=== PATIENT | female | born 1990 | race Two or more races ===

== ENCOUNTER 2025-01-14 06:18 | Inpatient (IN) | payer MEDICAID ==
[2025-01-12 11:01] LABS: INR 0.98 (0.9-1.15); Partial Thromboplastin Time 28.2 SEC (24.5-34.5); Prothrombin Time 10.4 sec (9.3-11.8)
[2025-01-12 11:14] LABS: Hematocrit 40.7 % (36.0-46.0); Hemoglobin 13.7 g/dL (12.2-16.2); Mean Corpuscular Hemoglobin 27.8 pg (28.0-32.0); Mean Corpuscular Volume 82.5 fL (80.0-100.0); Nucleated Red Blood Cells % 0.1 %
[2025-01-12 11:34] LABS: Alanine Aminotransferase 18 U/L (7-40); Albumin 4.3 g/dL (3.2-4.8); Alkaline Phosphatase 105 U/L (46-116); Anion Gap 9 (5-15); BUN/Creatinine Ratio 7.8 (10.0-20.0); Calcium 9.0 mg/dL (8.7-10.4); Carbon Dioxide 27 mmol/L (20-31); Chloride 105 mmol/L (98-107); Glucose 87 mg/dL (74-106); Potassium 4.1 mmol/L (3.5-5.1); Sodium 141 mmol/L (136-145); Total Protein 7.4 g/dL (5.7-8.2)
[2025-01-12 11:35] LABS: Bilirubin, Total 0.4 mg/dL (0.2-1.0)
[2025-01-12 11:39] LABS: Blood Urea Nitrogen 6 mg/dL (9-23)
[2025-01-12 11:41] LABS: Urine Protein, UAD TRACE (Negative)
[2025-01-14] VITALS (7 sets, daily range): BP systolic 107–120; BP diastolic 64–76; PULSE 55–69; RESP 12–20; TEMP 97.5–97.9; O2SAT 95–99
[~2025-01-14] VITALS: Ht 177.8 cm; Wt 156.5 kg
[~2025-01-14 06:18] MED LIST: CHOL20007 PO
[2025-01-14] MEDS: SUCCINYLCHOLINE CHLORIDE 20 MG/ML 10ML VIAL IV ONE (06:43)
[2025-01-14] MEDS ORDERED: PROPOFOL 10 MG/ML 20 ML IV ONE (06:46)
[2025-01-14] MEDS ORDERED: HYDROmorphone HCL 2 MG/ML VL/or syr ONE (06:46)
[2025-01-14] MEDS ORDERED: fentaNYL CITRATE 100 MCG/2 ML VL ONE (06:46)
[2025-01-14] MEDS ORDERED: ONDANSETRON HCL 4 MG/2 ML VIAL ONE (06:51)
[2025-01-14] MEDS ORDERED: PHENYLEPHRINE HCL 10 MG/ML VL ONE (06:51)
[2025-01-14] MEDS: LIDOCAINE W/ EPINEPHRINE 1% 20ML VIAL ONE (07:13)
[2025-01-14] MEDS: BUPIVACAINE 0.5% P/F INJ 10 ML VIAL ONE (07:13)
[2025-01-14] MEDS: ceFAZolin 2 GM/D5W50ml 50 ML IV ONE (07:24)
[2025-01-14] MEDS ORDERED: ROCURONIUM 10MG/ML 10ML VIAL IV ONE (07:35)
[2025-01-14] MEDS: POVIDONE IODINE 10 % TOPICAL OINT 30GM TOP ONE (08:11)
[2025-01-14] MEDS ORDERED: METOCLOPRAMIDE HCL 5MG/ml INJ 2ml VIAL IV PRN (08:45)
[2025-01-14] MEDS ORDERED: ACETAMINOPHEN IV 1000 MG/100ML (10MG/ML) IV PRN (08:45)
[2025-01-14] MEDS: ONDANSETRON HCL 4 MG/2 ML VIAL IV PRN ×2 (08:50→19:08)
[2025-01-14] MEDS: HYDROmorphone HCL 2 MG/ML VL/or syr ONE (08:59)
[2025-01-14] MEDS: HYDROmorphone HCL 2 MG/ML VL/or syr IV PRN ×2 (08:59→19:09)
[2025-01-14] MEDS: ONDANSETRON HCL 4 MG/2 ML VIAL ONE (09:00)
[2025-01-14] MEDS ORDERED: NITROGLYCERIN 0.4 MG SL TAB SL PRN (09:30)
[2025-01-14] MEDS ORDERED: MORPHINE SULFATE INJ 2 MG/ml SYRG IV PRN (09:30)
--- NOTE | 2025-01-14 10:08 | DVHOP ---
DATE OF SURGERY: 01/14/2025 PREOPERATIVE DIAGNOSES: * Cholelithiasis. * Chronic cholecystitis. POSTOPERATIVE DIAGNOSES: * Cholelithiasis. * Chronic cholecystitis. SURGEON: Damir Garza MD ANESTHESIA: General endotracheal, Dr. Lentz. PROCEDURES: * Laparoscopy. * Laparoscopic cholecystectomy. DESCRIPTION OF PROCEDURE: Under general endotracheal anesthesia with the patient's skin prepped and draped, a supraumbilical incision was made and a Veress needle inserted by the hanging drop technique in order to establish pneumoperitoneum to 15 mmHg pressure by insufflation with carbon dioxide. With the abdomen fully distended, the needle was removed and replaced with a 5 mm trocar port through which a 0-degree viewing laparoscope was inserted and under direct vision, an additional 5 and 10 mm ports inserted through the right anterior axillary line in the subxiphoid midline skin respectively. Instrumentation was introduced. Laparoscopy was accomplished revealing no obvious unexpected pathology on the serosal surfaces visualized, although the patient's morbid obesity hampered the thorough examination. The gallbladder was surrounded by omental caking and it was placed on tension. The omentum was stripped from the gallbladder. The gallbladder was traced to an infundibular section where there were multiple huge stones impacted in the gallbladder. The cystic duct was identified and circumferentially dissected and traced into the hepatic and cystic triangle as to minimize the potential for inadvertent injury to the common bile duct. The cystic duct was divided between metallic clips close to the gallbladder, again attempting to avoid any inadvertent injury to the common bile duct. The cystic artery was similarly circumferentially dissected and skeletonized and then divided close to the gallbladder between metallic clips. Subsequently, the gallbladder was resected from its liver bed. The gallbladder was almost entirely intrahepatic, which made the dissection of the gallbladder from the liver bed quite tedious and resulted in some denuding of the liver bed. The gallbladder was then removed from the peritoneal cavity. Several spilled stones were removed to the best of my ability, although the patient's obesity and enlarged liver made it difficult to see into the intrahepatic sulcus. A 10-mm Chilo-Rueda drain was inserted underneath the right lobe of the liver and exteriorized through the right flank 5 mm port site secured with a 2-0 nylon suture. Subsequently, hemostasis was meticulously inspected and found to be complete. There was no evidence of bleeding from either the port sites or from the liver bed at the termination of the procedure. The patient's abdomen was desufflated after removal of the instrumentation. The fascial defect was closed using #0 Vicryl. Metallic screws were used for approximation of skin edges. The patient remained stable throughout the procedure and left the operating room following an accurate needle and sponge count. MD SHELIA Holloway/DYLLAN TID: [id number] RECEIPT: [id number]
--- NOTE | 2025-01-14 10:35 | DVHHP2 ---
Review of Systems Allergies: Coded Allergies: NO KNOWN ALLERGIES (Unverified , 01/12/25) Medications Current Medications Medications Dose Ordered Sig/Ramiro Route Start Time Stop Time Status Last Admin Dose Admin Potassium Chloride/Dextrose/ Sod Cl 1,000 ml @ 120 mls/hr Q8H20M IV 01/14/25 08:30 Cefazolin Sodium/ Dextrose 50 ml @ 50 mls/hr Q8HR IV 01/14/25 14:00 Hydromorphone HCl 1 mg Q4HPRN PRN IV 01/14/25 08:30 Ondansetron HCl 4 mg Q4HPRN PRN IV 01/14/25 08:30 Pantoprazole Sodium 40 mg DAILY IV 01/14/25 10:00 Nitroglycerin 0.4 mg Q5MINP PRN SL 01/14/25 09:30 UNV Morphine Sulfate 2 mg Q30M PRN IV 01/14/25 09:30 UNV Exam Vital Signs Vital Signs Date Time Temp Pulse Resp B/P (MAP) Pulse Ox O2 Delivery O2 Flow Rate FiO2 01/14/25 10:05 60 16 123/61 (81) 99 01/14/25 09:00 Nasal Cannula 2.0 95 01/14/25 08:20 97.3 97.3 Labs/Xrays Labs Test 01/12/25 10:01 Range/Units White Blood Count 5.7 4.4-10.8 10^3/uL Red Blood Count 4.93 4.0-5.20 10^6/uL Hemoglobin 13.7 12.2-16.2 g/dL Hematocrit 40.7 36.0-46.0 % Mean Corpuscular Volume 82.5 80.0-100.0 fL Mean Corpuscular Hemoglobin 27.8 L 28.0-32.0 pg Mean Corpuscular Hemoglobin Concent 33.7 32.0-36.0 g/dL Red Cell Distribution Width 15.5 H 11.8-14.3 % Platelet Count 302 140-450 10^3/uL Mean Platelet Volume 9.5 6.9-10.8 fL Neutrophils (%) (Auto) 44.2 37.0-80.0 % Lymphocytes (%) (Auto) 42.7 10.0-50.0 % Monocytes (%) (Auto) 10.7 0.0-12.0 % Eosinophils (%) (Auto) 1.9 0.0-7.0 % Basophils (%) (Auto) 0.5 0.0-2.0 % Neutrophils # (Auto) 2.5 1.6-8.6 10 ^3/uL Lymphocytes # (Auto) 2.4 0.4-5.4 10 ^3/uL Monocytes # (Auto) 0.6 0-1.3 10 ^3/uL Eosinophils # (Auto) 0.1 0-0.8 10 ^3/uL Basophils # (Auto) 0 0-0.2 10 ^3/uL Nucleated Red Blood Cells 0.1 % Prothrombin Time 10.4 9.3-11.8 sec Prothrombin Time INR 0.98 0.9-1.15 Activated Partial Thromboplast Time 28.2 24.5-34.5 SEC Urine Color Yellow Yellow Urine Clarity Turbid H Clear Urine pH 8.0 5.0-9.0 Urine Specific [place] 1.027 1.001-1.035 Urine Protein Trace H Negative Urine Ketones Negative Negative Urine Blood Negative Negative /uL Urine Nitrite Negative Negative Urine Bilirubin Negative Negative Urine Urobilinogen Normal Negative mg/dL Urine Leukocyte Esterase Negative Negative /uL Urine RBC 4 0 - 4 /hpf Urine Microscopic WBC 4 0-5 /HPF Urine Squamous Epithelial Cells Mod <5 /hpf Urine Bacteria None seen None Seen /hpf Urine Mucus Few None Seen Urine Glucose Normal Normal mg/dL Urine Test Negative Negative Sodium Level 141 136-145 mmol/L Potassium Level 4.1 3.5-5.1 mmol/L Chloride Level 105 98-107 mmol/L Carbon Dioxide Level 27 20-31 mmol/L Anion Gap 9 5-15 Blood Urea Nitrogen 6 L 9-23 mg/dL Creatinine 0.77 0.550-1.02 mg/dL Glomerular Filtration Rate Calc 104 >90 mL/min BUN/Creatinine Ratio 7.8 L 10.0-20.0 Serum Glucose 87 74-106 mg/dL Calcium Level 9.0 8.7-10.4 mg/dL Total Bilirubin 0.4 0.2-1.0 mg/dL Aspartate Amino Transferase (AST) 15 13-40 U/L Alanine Aminotransferase (ALT) 18 7-40 U/L Alkaline Phosphatase 105 46-116 U/L Total Protein 7.4 5.7-8.2 g/dL Albumin 4.3 3.2-4.8 g/dL SEPSIS Sepsis Screen Physician Orders To Pacu For Recovery (01/14/25 08:24) Page Hospitalist For Admission (01/14/25 08:24) Oxygen Via Cool Mist Mask (01/14/25 08:24) Incentive Spirometry Q 1hr (01/14/25 08:24) Franky To Bulb Suction (01/14/25 08:24) Abdominal Binder (01/14/25 08:24) Sequential Compression Device (01/14/25 08:24) Clear Liq Diet (01/14/25 Breakfast) Bilirubin, Total (01/15/25 04:00) D5w/Sod Chl 0.45%/Kcl 20meq (01/14/25 08:30) Cefazolin 2 Gm/[id number] (Ancef) (01/14/25 14:00) Hydromorphone Injection (Dilaudid Inject (01/14/25 08:30) Ondansetron Hcl (Zofran) (01/14/25 08:30) Pantoprazole (Protonix) (01/14/25 10:00) Washroom Attendant (01/14/25 08:35) Notify Anesth. For Changes: (01/14/25 08:35) Discharge To Room Per Criteria (01/14/25 08:35) Admit (01/14/25 09:30) Oxygen By Nasal Cannula (01/14/25 09:30) Nitroglycerin Sublingual (Ntrostat Subli (01/14/25 09:30) Morphine Sulfate Injection (01/14/25 09:30) Stat Ekg For Chest Pain (01/14/25 09:30) Notify Md Of Changes From Base (01/14/25 09:30) Emergency Dysrhythmia Protocol (01/14/25 09:30) Vital Signs Date Time Temp Pulse Resp B/P (MAP) Pulse Ox O2 Delivery O2 Flow Rate FiO2 01/14/25 10:05 60 16 123/61 (81) 99 01/14/25 09:35 57 12 120/62 (81) 99 01/14/25 09:20 59 15 115/66 (82) 99 01/14/25 09:05 55 14 116/67 (83) 100 01/14/25 09:00 Nasal Cannula 2.0 95 01/14/25 09:00 55 12 95 Nasal Cannula 2.0 01/14/25 08:59 56 18 125/70 01/14/25 08:50 59 20 120/67 (84) 96 01/14/25 08:35 56 18 124/70 (88) 96 01/14/25 08:30 60 18 118/58 (78) 95 01/14/25 08:25 66 20 121/71 (88) 95 01/14/25 08:20 69 20 96 Room Air 0 01/14/25 08:20 Room Air 0 96 01/14/25 08:20 97.3 69 20 124/68 (86) 96 97.3 01/14/25 06:25 97.5 60 20 118/65 (82) 96 97.5 Medications Medications Dose Ordered Sig/Ramiro Route Start Time Stop Time Status Last Admin Dose Admin Cefazolin Sodium/ Dextrose 50 ml @ ud STK-MED ONCE IV 01/14/25 06:37 01/14/25 06:33 DC 01/14/25 07:24 Hydromorphone HCl 0.5 mg Q10M PRN IV 01/14/25 08:45 01/14/25 09:26 DC 01/14/25 08:59 0.5 MG Ondansetron HCl 4 mg ONCE PRN IV 01/14/25 08:45 01/14/25 08:53 DC 01/14/25 08:50 4 MG Povidone Iodine 1 applic STK-MED ONCE TOP 01/14/25 08:11 01/14/25 08:07 DC 01/14/25 08:15 1 APPLIC Assessment/Plan Assessment/Plan SEE DICTATED NOTE Plan discussed with: Patient My Orders Orders - IMER IWLHELM MD Procedure Category Date Status Time Admit ADMIT 01/14/25 Transmitted 09:30 Oxygen By Nasal RT 01/14/25 Transmitted Cannula 09:30 Nitroglycerin PHA 01/14/25 Logged Sublingual (Ntrostat 09:30 Morphine Sulfate PHA 01/14/25 Logged Injection 09:30 Stat Ekg For Chest SURY 01/14/25 In Process Pain 09:30 Notify Of Changes SURY 01/14/25 In Process From Base 09:30 Emergency Dysrhythmia SURY 01/14/25 In Process Protocol 09:30 Date of Service: Jan 14, 2025 Billing Provider: IMER WILHELM MD Common Visit Codes: [id number] INP/OBS CARE (HIGH) IMER WILHELM MD Jan 14, 2025 10:35
--- NOTE | 2025-01-14 10:46 | DVHHP ---
ADMIT DATE: 01/14/2025 HISTORY OF PRESENT ILLNESS: The patient is a 34-year-old lady who is admitted after she underwent surgery for laparoscopic cholecystectomy for cholelithiasis and chronic cholecystitis. The patient at this time denies any significant pain. No chest pain, no shortness of breath, no nausea or vomiting. REVIEW OF SYSTEMS: Review of rest of systems is otherwise currently negative. PAST MEDICAL HISTORY: Significant for PCOS and obesity. MEDICATIONS: She takes vitamin D. ALLERGIES: No known drug allergies. SOCIAL HISTORY: Denies smoking or alcohol. FAMILY HISTORY: Negative. PHYSICAL EXAMINATION: GENERAL: The patient is awake, alert. VITAL SINGS: Temperature of 97.3, pulse 59 per minute, blood pressure 115/66. SHEENT: Unremarkable. There is no pedal edema. LUNGS: Equal bilaterally. No added sounds. CARDIOVASCULAR SYSTEM: S1 and S2 are regular without murmurs. ABDOMEN: Bowel sounds are hypoactive. There is a CISCO drain in place. NEUROLOGIC: Nonfocal. MUSCULOSKELETAL: Normal. ASSESSMENT AND PLAN: * Morbid obesity. * Status post laparoscopic cholecystectomy for cholelithiasis and chronic cholecystitis. The patient will be placed on IV fluids and pain medications. MD SANJUANITA Palumbo/PIEDAD TID: [id number] RECEIPT: [id number]
[2025-01-14] MEDS: PANTOPRAZOLE 40 MG/10 ML VIAL INJ IV SCH (10:55)
[2025-01-14] MEDS: D5W/SOD CHL 0.45%/KCL 20MEQ 1,000 ML IV SCH (11:14)
[2025-01-14] MEDS: ceFAZolin 2 GM/D5W50ml 50 ML IV SCH (15:21)
[2025-01-15] VITALS (8 sets, daily range): BP systolic 104–121; BP diastolic 57–79; PULSE 55–65; RESP 15–19; TEMP 96.4–98.2; O2SAT 95–100
[2025-01-15] MEDS: HYDROcodone-ACET 5/325MG TAB PO PRN (02:55)
[2025-01-15 06:35] LABS: Albumin 3.8 g/dL (3.2-4.8); Anion Gap 9 (5-15); Bilirubin, Total 0.6 mg/dL (0.2-1.0); Carbon Dioxide 26 mmol/L (20-31); Chloride 105 mmol/L (98-107); Potassium 3.9 mmol/L (3.5-5.1); Sodium 140 mmol/L (136-145); Total Protein 6.6 g/dL (5.7-8.2)
[2025-01-15 06:36] LABS: Alanine Aminotransferase 114 U/L (7-40); Alkaline Phosphatase 132 U/L (46-116); BUN/Creatinine Ratio 6.6 (10.0-20.0); Blood Urea Nitrogen < 5 mg/dL (9-23); Calcium 8.4 mg/dL (8.7-10.4); Glucose 131 mg/dL (74-106)
[2025-01-15 06:48] LABS: Hematocrit 35.7 % (36.0-46.0); Hemoglobin 12.0 g/dL (12.2-16.2); Mean Corpuscular Hemoglobin 27.7 pg (28.0-32.0); Mean Corpuscular Volume 82.3 fL (80.0-100.0); Nucleated Red Blood Cells % 0.0 %
[2025-01-15] MEDS: ceFAZolin 2 GM/D5W50ml 50 ML IV SCH (09:51)
--- NOTE | 2025-01-15 10:05 | DVHPN2 ---
Progress Note Date Seen: Jan 15, 2025 Medical Necessity Reason Pt with a Central, PICC or Fol: No Objective vital signs Vital Sign Date Time Temp Pulse Resp B/P (MAP) Pulse Ox O2 Delivery O2 Flow Rate FiO2 01/15/25 09:00 97.4 55 17 110/71 (84) 100 97.4 01/14/25 20:00 Room Air* 0 21 Total Intake and Output 01/14/25 01/14/25 01/15/25 15:00 23:00 07:00 Intake Total 50 ml 350 ml 250 ml Output Total 20 ml Balance 30 ml 350 ml 250 ml medications Current Medications Medications Dose Ordered Sig/Ramiro Route Start Time Stop Time Status Last Admin Dose Admin Potassium Chloride/Dextrose/ Sod Cl 1,000 ml @ 120 mls/hr Q8H20M IV 01/14/25 08:30 01/15/25 09:55 120 MLS/HR Hydromorphone HCl 1 mg Q4HPRN PRN IV 01/14/25 08:30 01/14/25 19:09 1 MG Ondansetron HCl 4 mg Q4HPRN PRN IV 01/14/25 08:30 01/14/25 19:08 4 MG Pantoprazole Sodium 40 mg DAILY IV 01/14/25 10:00 01/15/25 09:50 40 MG Nitroglycerin 0.4 mg Q5MINP PRN SL 01/14/25 09:30 Morphine Sulfate 2 mg Q30M PRN IV 01/14/25 09:30 Acetaminophen/ Hydrocodone Bitart 1 tab Q6HPRN PRN PO 01/14/25 10:45 01/15/25 09:51 1 TAB Cefazolin Sodium/ Dextrose 50 ml @ 50 mls/hr Q8H IV 01/15/25 08:00 01/15/25 09:51 50 MLS/HR laboratory and microbiology Laboratory Tests 01/15/25 05:38 Test 01/15/25 05:38 Range/Units Serum Glucose 131 H 74-106 mg/dL Problem List/Assessment/Plan Problem List/Assessment/Plan 01/15/25 FEELS OK, WOUND DRESSINGS DRY, DRAINAGE NON BILIOUS, ABDOMEN APPROPRIATELY TENDER, LABS SHOW ELEV.LFT'S NL BILIRUBIN, WILL ADVANCE PO TO REGULAR DIET AND SHE IS CLEARED TO BE DISCHARGED FROM A SURGICAL POINT OF VIEW. Plan discussed with: Patient MARY BERRIOS MD Jan 15, 2025 10:05
[2025-01-15] MEDS: D5W/SOD CHL 0.45%/KCL 20MEQ 1,000 ML IV SCH (10:30)
--- NOTE | 2025-01-15 10:32 | DVHPN2 ---
Progress Note Date Seen: Jan 15, 2025 Medical Necessity Reason Pt with a Central, PICC or Fol: No Subjective Patient reports: No new complaints Review of Systems: HEENT:Normal, CVS:Normal, RESPIRATORY:Normal, GI:Normal, :Normal, MSK:Normal, NEURO:Normal Objective vital signs Vital Sign Date Time Temp Pulse Resp B/P (MAP) Pulse Ox O2 Delivery O2 Flow Rate FiO2 01/15/25 09:00 97.4 55 17 110/71 (84) 100 97.4 01/14/25 20:00 Room Air* 0 21 Total Intake and Output 01/14/25 01/14/25 01/15/25 15:00 23:00 07:00 Intake Total 50 ml 350 ml 250 ml Output Total 20 ml Balance 30 ml 350 ml 250 ml medications Current Medications Medications Dose Ordered Sig/Ramiro Route Start Time Stop Time Status Last Admin Dose Admin Potassium Chloride/Dextrose/ Sod Cl 1,000 ml @ 120 mls/hr Q8H20M IV 01/14/25 08:30 01/15/25 09:55 120 MLS/HR Hydromorphone HCl 1 mg Q4HPRN PRN IV 01/14/25 08:30 01/14/25 19:09 1 MG Ondansetron HCl 4 mg Q4HPRN PRN IV 01/14/25 08:30 01/14/25 19:08 4 MG Pantoprazole Sodium 40 mg DAILY IV 01/14/25 10:00 01/15/25 09:50 40 MG Nitroglycerin 0.4 mg Q5MINP PRN SL 01/14/25 09:30 Morphine Sulfate 2 mg Q30M PRN IV 01/14/25 09:30 Acetaminophen/ Hydrocodone Bitart 1 tab Q6HPRN PRN PO 01/14/25 10:45 01/15/25 09:51 1 TAB Cefazolin Sodium/ Dextrose 50 ml @ 50 mls/hr Q8H IV 01/15/25 08:00 01/15/25 09:51 50 MLS/HR Examination: GENERAL:Normal, HEENT:Normal, NECK:Normal, LUNGS:Normal, CVS:Normal, ABDOMEN:Normal, ABDOMEN:Abnormal (drain+), MSK:Normal, SKIN:Normal, NEURO:Normal, :Normal laboratory and microbiology Laboratory Tests 01/15/25 05:38 Test 01/15/25 05:38 Range/Units Serum Glucose 131 H 74-106 mg/dL Problem List/Assessment/Plan Problem List/Assessment/Plan * Morbid obesity. * transaminitis: repeat cmp in am * Status post laparoscopic cholecystectomy for cholelithiasis and chronic cholecystitis. The patient will be placed on IV fluids and pain medications, advance diet Plan discussed with: Patient My Orders My Orders Orders - IMER WILHELM MD Procedure Category Date Status Time Hydrocodone-Acet PHA 01/14/25 In Process 5/325mg Tab ([place] 10:45 D5 1/2 Ns Potassium PHA 01/15/25 Verified 20meq 10:30 Complete Blood Count LAB 01/16/25 Verified 06:00 Comprehensive LAB 01/16/25 Verified Metabolic Panel 06:00 Date of Service: Jan 15, 2025 Billing Provider: IMER WILHELM MD Common Visit Codes: [id number] INP/OBS CARE(HIGH) IMER WILHELM MD Jan 15, 2025 10:32
[2025-01-16 01:17] VITALS: BP 119/70; PULSE 60; RESP 18; TEMP 98; O2SAT 95
[2025-01-16 05:00] VITALS: BP 117/66; PULSE 63; RESP 18; TEMP 98.5; O2SAT 93
[2025-01-16 06:34] LABS: Hematocrit 35.9 % (36.0-46.0); Hemoglobin 12.0 g/dL (12.2-16.2); Mean Corpuscular Hemoglobin 27.5 pg (28.0-32.0); Mean Corpuscular Volume 82.5 fL (80.0-100.0); Nucleated Red Blood Cells % 0.0 %
[2025-01-16 06:59] LABS: Albumin 3.7 g/dL (3.2-4.8); Anion Gap 10 (5-15); BUN/Creatinine Ratio 8.8 (10.0-20.0); Bilirubin, Total 0.5 mg/dL (0.2-1.0); Carbon Dioxide 27 mmol/L (20-31); Chloride 104 mmol/L (98-107); Glucose 89 mg/dL (74-106); Potassium 3.7 mmol/L (3.5-5.1); Sodium 141 mmol/L (136-145); Total Protein 6.4 g/dL (5.7-8.2)
[2025-01-16 07:02] LABS: Blood Urea Nitrogen 7 mg/dL (9-23)
[2025-01-16 07:03] LABS: Alanine Aminotransferase 155 U/L (7-40); Alkaline Phosphatase 137 U/L (46-116); Calcium 8.4 mg/dL (8.7-10.4)
[2025-01-16 08:00] VITALS: PULSE 68; RESP 18
[2025-01-16 09:00] VITALS: BP 105/67; PULSE 61; RESP 16; TEMP 98.1; O2SAT 94
[2025-01-16] MEDS ORDERED: HYDR-4902 PO (11:29)
[2025-01-16] MEDS ORDERED: SENN-62 PO (11:29)
[2025-01-16] MEDS ORDERED: AMOX500T86 PO (11:29)
--- NOTE | 2025-01-16 11:34 | DVHDS2 ---
Discharge Summary Date of Admission Jan 14, 2025 at 09:30 Date of Discharge: Jan 16, 2025 Admitting Diagnosis Cholecystitis Labs/Diagnostic Data: Laboratory Results Test 01/16/25 05:03 01/12/25 10:01 White Blood Count 6.6 10^3/uL (4.4-10.8) Red Blood Count 4.36 10^6/uL (4.0-5.20) Hemoglobin 12.0 g/dL (12.2-16.2) Hematocrit 35.9 % (36.0-46.0) Mean Corpuscular Volume 82.5 fL (80.0-100.0) Mean Corpuscular Hemoglobin 27.5 pg (28.0-32.0) Mean Corpuscular Hemoglobin Concent 33.4 g/dL (32.0-36.0) Red Cell Distribution Width 15.4 % (11.8-14.3) Platelet Count 266 10^3/uL (140-450) Mean Platelet Volume 9.2 fL (6.9-10.8) Neutrophils (%) (Auto) 48.8 % (37.0-80.0) Lymphocytes (%) (Auto) 41.2 % (10.0-50.0) Monocytes (%) (Auto) 8.3 % (0.0-12.0) Eosinophils (%) (Auto) 0.9 % (0.0-7.0) Basophils (%) (Auto) 0.8 % (0.0-2.0) Neutrophils # (Auto) 3.2 10 ^3/uL (1.6-8.6) Lymphocytes # (Auto) 2.7 10 ^3/uL (0.4-5.4) Monocytes # (Auto) 0.5 10 ^3/uL (0-1.3) Eosinophils # (Auto) 0.1 10 ^3/uL (0-0.8) Basophils # (Auto) 0.1 10 ^3/uL (0-0.2) Nucleated Red Blood Cells 0.0 % Sodium Level 141 mmol/L (136-145) Potassium Level 3.7 mmol/L (3.5-5.1) Chloride Level 104 mmol/L (98-107) Carbon Dioxide Level 27 mmol/L (20-31) Anion Gap 10 (5-15) Blood Urea Nitrogen 7 mg/dL (9-23) Creatinine 0.80 mg/dL (0.550-1.02) Glomerular Filtration Rate Calc 100 mL/min (>90) BUN/Creatinine Ratio 8.8 (10.0-20.0) Serum Glucose 89 mg/dL (74-106) Calcium Level 8.4 mg/dL (8.7-10.4) Total Bilirubin 0.5 mg/dL (0.2-1.0) Aspartate Amino Transferase (AST) 111 U/L (13-40) Alanine Aminotransferase (ALT) 155 U/L (7-40) Alkaline Phosphatase 137 U/L (46-116) Total Protein 6.4 g/dL (5.7-8.2) Albumin 3.7 g/dL (3.2-4.8) Prothrombin Time 10.4 sec (9.3-11.8) Prothrombin Time INR 0.98 (0.9-1.15) Activated Partial Thromboplast Time 28.2 SEC (24.5-34.5) Urine Color Yellow (Yellow) Urine Clarity Turbid (Clear) Urine pH 8.0 (5.0-9.0) Urine Specific [place] 1.027 (1.001-1.035) Urine Protein Trace (Negative) Urine Ketones Negative (Negative) Urine Blood Negative /uL (Negative) Urine Nitrite Negative (Negative) Urine Bilirubin Negative (Negative) Urine Urobilinogen Normal mg/dL (Negative) Urine Leukocyte Esterase Negative /uL (Negative) Urine RBC 4 /hpf (0 - 4) Urine Microscopic WBC 4 /HPF (0-5) Urine Squamous Epithelial Cells Mod /hpf (<5) Urine Bacteria None seen /hpf (None Seen) Urine Mucus Few (None Seen) Urine Glucose Normal mg/dL (Normal) Urine Test Negative (Negative) Other Laboratory Tests 01/16/25 05:03 Brief Hx & Hospital Course: HISTORY OF PRESENT ILLNESS: The patient is a 34-year-old lady who is admitted after she underwent surgery for laparoscopic cholecystectomy for cholelithiasis and chronic cholecystitis. The patient at this time denies any significant pain. No chest pain, no shortness of breath, no nausea or vomiting. Course of hospitalization: Patient noted to have LFTs post surgery, which remain equivocal. Patient was tolerating oral intake without any pain. CISCO drain with serosanguineous fluid, minimal. Patient will be discharged home today now that she has positive bowel sounds, tolerating oral intake, as well as her pain being tolerated with oral narcotics. Patient will follow up with her PCP in 1-2 weeks as well as Dr. Garza within 1-2 weeks. She will be continued on antibiotic therapy with Augmentin 500 mg p.o. b.i.d. for additional four days, and be provided [place] 5/325 every 8 hours as needed for pain as well as Senokot for signs of constipation. Patient was educated on how to empty her CISCO drain. She is instructed not to lift anything greater than 5 lb until cleared by Dr. Garza. She is agreeable with discharge plan. All questions answered. Physical examination General: Alert and Oriented x3. No acute distress. Well-nourished. Obese Eyes: EOMI. Anicteric. HENT: Moist mucous membranes. Lungs: Clear to auscultation bilaterally. No accessory muscle use. Cardiovascular: Regular rate and rhythm. No murmur. No JVD. Abdomen: Soft, non-tender and non-distended. No palpable masses. Surgical puncture sites dry and intact. Extremities: No edema. Non-tender. Skin: No rashes or lesions. Warm. Neurologic: No focal neurological deficits. CN II-XII grossly intact, but not individually tested. Psychiatric: Cooperative. Appropriate mood and affect. Total time spent with patient discussing and formulating plan of care: 35 minutes. This medical document was created using an electronic medical record system with [employer] dictation system. Although this document has been carefully reviewed, there may still be some phonetic and typographical errors. These areas are purely typographical due to imperfections of the software programs, and do not reflect any compromise in the patient's medical care. Condition at Discharge: Good Final Diagnosis/Problems List Cholecystitis, status post cholecystectomy Elevated LFTs Obesity Discharge Disposition: Home Discharge Instruct/Medications Diet: Regular Activity: No Restrictions, As Tolerated Follow Up/Referral: Follow up with Dr. Garza in 1-2 weeks Medications: Augmentin 500 mg p.o. b.i.d. times four days [place] 5/325 q.8 hours as needed for [id number]-[id number]-[id number] pain Senna one tablet p.o. q.h.s. as needed for constipation Scheduled Amoxicillin & Pot Clavulanate (Augmentin), 1 TAB PO BID Cholecalciferol (Vitamin D3), 1 TAB PO DAILY, (Reported) Sennosides-Docusate Sodium (Senokot S), 1 TAB PO BID Scheduled PRN Hydrocodone-Acetaminophen (Hydrocodone Bitartrate/AC 5-325 mg), 1 TAB PO Q8HP PRN 36 Discharge Statement: "Patient was advised to return to the ER or call 911 if any headaches, dizziness, shortness of breath, chest pain, abdominal pain, bleeding, fevers, or worsening of medical condition. Patient was counseled about treatment plan, medications, possible side effects, patientverbalized understanding. All questions were answered to the best of my ability. This discharge took greater then 30 minutes in planning, reviewing documentation, counseling the patient, and discussing with other team members." ASSESSMENT ASSESSMENT Assessment Cholecystitis, status post cholecystectomy Date of Service: Jan 16, 2025 Billing Provider: MARCIA PAYNE NP Common Visit Codes: [id number] DISCH DAY >30min MARCIA PAYNE NP Jan 16, 2025 11:34
[2025-01-16 13:00] VITALS: BP 118/76; PULSE 62; RESP 17; TEMP 98.5; O2SAT 99
[2025-01-16 13:14] VITALS: BP 129/70; PULSE 65; RESP 18; TEMP 36.7; O2SAT 95
== END 2025-01-16 14:20 | disposition home or self-care (01) | DRG 263 ==
LOC: SUR 06:18 → OVERFLOW 09:30 → CENTRAL 13:02
PROVIDERS: ADMIT Nurse Practitioner Acute Care; ATTEND Nurse Practitioner Acute Care
PROC: 0FT44ZZ Resection of Gallbladder, Percutaneous Endoscopic Approach (ICD-10-PCS; principal; 2025-01-14 07:23)
DX: K80.10 Calculus of gallbladder with chronic cholecystitis without obstruction (principal); E28.2 Polycystic ovarian syndrome; E66.01 Morbid (severe) obesity due to excess calories; Z68.42 Body mass index [BMI] 45.0-49.9, adult; R74.01 Elevation of levels of liver transaminase levels; R79.89 Other specified abnormal findings of blood chemistry
CPT/HCPCS: 36415; 80053; 81001; 81025; 85025; 85610; 85730; 86850; 86900; 86901; G0378; J0330; J1100; J2405; J2470; J2704; J3490